=== PATIENT | male | born 1935 | race Caucasian/White ===

== ENCOUNTER → 2022-01-10 | Outpatient (CLI) | payer OTHER, BC ==
[~2022-01-10] VITALS: Ht 177.8 cm; Wt 90.7 kg
[~2022-01-10] MED LIST: ASPIRIN EC81 M1 PO; FLOMAX0.4 MG PO; INDERAL60 MG PO; LIPITOR40 MG PO; STOOL SOFTENER100 M1 PO; VITAMIN B-121000 MC3 PO
--- NOTE | 2022-01-12 08:12 | P ---
[facility] [place] [address] PROCEDURE REPORT Name: DOROTA PATEL [id number] Admission: 01/10/22 Attend Phys: Inoecncio Robins Discharge: Date of : 35 Report #: [id number] THIS REPORT FOR: cc: Danilo Morse MD,Inocencio Wright MD, MD ~ cc: DANILO MORSE DATE OF SERVICE: 01/10/2022 PROCEDURE PERFORMED: Colonoscopy with biopsies. HISTORY OF PRESENT ILLNESS: The patient is an 86-year-old male with a history of large polyp removed in the past. I do not have a copy of any of his old records. He is unsure where this polyp was located. He had this removed or was told to have a repeat colonoscopy in 3 years, which he presents today for. He denies any symptoms, no family history of colon cancer. He denies any blood in the stools. DESCRIPTION OF PROCEDURE: The risks and benefits of the procedure were explained to the patient, those risks including but not limited to bleeding, perforation and the risk of sedation. He understood these risks and gave informed consent. Sedation was given using propofol per anesthesia. Next, a digital rectal exam was initially performed, which was normal. Next, using a standard Olympus colonoscope, the scope was placed in the patient's anus and advanced under direct vision to the cecum. The overall prep was good. The cecum and ileocecal valve were normal in appearance. In the ascending colon, a 4 mm sessile polyp was noted. This was removed with cold forceps, otherwise normal. The transverse and descending colon were normal. Multiple diverticula were noted in the sigmoid colon. In the rectum, there was scarring noted in the distal rectum, likely from previous polypectomy site. This was well healed. There was no evidence of any polyp tissue or adenomatous tissue. No other abnormalities were noted as well. The scope was then withdrawn and the procedure terminated. The patient tolerated the procedure well. IMPRESSION: 1. Previous polypectomy site in the distal rectum well healed. 2. Small polyp in the ascending colon. 3. Sigmoid diverticulosis. 4. Otherwise, normal colonoscopy. RECOMMENDATIONS: 1. Await biopsy results. 2. Would recommend observing at this point due to the patient's age. [address] [address] PROCEDURE REPORT Name: DOROTA PATEL Room #: REG LIANET Herman#: [id number] Admission: 01/10/22 Attend Phys: Inocencio Robins Discharge: Date of : 35 Report #: [id number] Thank you for allowing me to participate in his care. <ELECTRONICALLY SIGNED> By: Inocencio Holt MD 01/12/22 0812 0935 [id number] Inocencio Holt MD /nt
--- NOTE | 2022-01-12 13:08 | PATH ---
[facility] [address] [place] [address] PATHOLOGY RPT PROCEDURE Name: DOORTA XAVIER Room #: REG [facility].#: [id number] Admission: 01/10/22 Date of : 35 Discharge: Report #: [id number] Path Case #: [id number] [facility] Accession Number: [id number] . 01 Material submitted: . colon - ASCENDING COLON POLYP. Modifiers: ascending . 01 Clinical history: . HX OF POLYPS DIVERTICULITIS . 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 - Negative for adenomatous change or malignancy. (ANK:bunny; 01/12/2022) QMS 01/12/2022 1117 Local . 02 Electronically signed: . Vivien Snider MD, Pathologist NPI- [id number] . 01 Gross description: . The specimen is received in formalin, labeled "Dorota Xavier, ascending colon", additionally the requisition designates the specimen as "Ascending colon polyp". The specimen consists of a treadwell irregular tissue measuring 0.4 x 0.3 x 0.1 cm which is filtered and submitted in toto in A1. (CHOCTAW; 01/11/2022) DKA/DKA 01/11/2022 1643 Local . 02 Pathologist provided ICD-10: K63.89 . 02 CPT . 262925 Specimen Comment: A courtesy copy of this report has been sent to [phone] Specimen Comment: [id number] Specimen Comment: Report sent to / DR MARIE Performed at: [address] [id number] MD Miguel Angel Beverly MD Phone: [phone] Performed at: [address] [id number] [address] [address] PATHOLOGY RPT PROCEDURE Name: MERLIN XAVIERWESTON Millan Room #: REG LIANET Herman#: [id number] Admission: 01/10/22 Date of : 35 Discharge: Report #: [id number] Path Case #: [id number] MD Vivien Snider MD Phone: [phone]
== END | disposition home or self-care (01) ==
LOC: GI 07:38
PROVIDERS: ATTEND Specialist
DX: Z12.11 Encounter for screening for malignant neoplasm of colon (principal); Z86.010 Personal history of colon polyps; D12.2 Benign neoplasm of ascending colon; K57.30 Diverticulosis of large intestine without perforation or abscess without bleeding; K63.89 Other specified diseases of intestine; I10 Essential (primary) hypertension; E78.5 Hyperlipidemia, unspecified; Z98.890 Other specified postprocedural states; Z79.899 Other long term (current) drug therapy; Z96.652 Presence of left artificial knee joint; Z87.891 Personal history of nicotine dependence; Z95.0 Presence of cardiac pacemaker; Z95.1 Presence of aortocoronary bypass graft; Z79.82 Long term (current) use of aspirin
CPT/HCPCS: 62110; 62900